=== PATIENT | female | born 2000 | race Caucasian/White ===

== ENCOUNTER 2021-01-18 17:50 | Emergency (ER) | payer BC ==
[2021-01-18] MEDS ORDERED: Ondansetron ODT 4 MG TAB ONE (19:00)
[2021-01-18] MEDS ORDERED: Metoclopramide HCl 10 MG TAB ONE (19:00)
[2021-01-18] MEDS ORDERED: Ibuprofen 200 MG TAB ONE (19:01)
== END 2021-01-18 19:27 | disposition home or self-care (01) ==
LOC: CSHERS 17:50
DX: G43.909 Migraine, unspecified, not intractable, without status migrainosus (principal)
CPT/HCPCS: 99283; Q0162